=== PATIENT | female | born 1970 | race Caucasian/White ===

== ENCOUNTER 2020-02-17 15:50 | Emergency (ER) | payer SELFPAY ==
[~2020-02-17] VITALS: Ht 167.6 cm; Wt 65.9 kg
[2020-02-17 15:55] VITALS: BP 119/79
[2020-02-17] MEDS ORDERED: OXYC1TAB15 PO (18:52)
== END 2020-02-17 16:27 | disposition left against medical advice (07) ==
LOC: ER 15:50
DX: M54.5 Low back pain (principal); Z53.21 Procedure and treatment not carried out due to patient leaving prior to being seen by health care provider

== ENCOUNTER 2020-02-17 17:02 | Emergency (ER) | payer SELFPAY ==
[~2020-02-17] VITALS: Ht 167.6 cm; Wt 65.9 kg
[2020-02-17 17:45] VITALS: BP 153/118
[2020-02-17 18:21] LABS: BILIRUBIN,URINE SMALL (NEG); CLARITY,URINE CLEAR; COLOR,URINE AMBER; NITRITE,URINE NEGATIVE (NEG); PROTEIN,URINE NEGATIVE (NEG-TRACE); UROBILINOGEN,URINE 0.2 mg/dL (0.2 mg/dL)
[2020-02-17 18:27] LABS: BACTERIA,URINE 0 /HPF (0-FEW); RBC,URINE OCC /HPF (0-2); WBC,URINE OCC /HPF (0-4)
[2020-02-17] MEDS ORDERED: MORPHINE SULFATE 10 MG/ML VIAL. IM ONE (18:30)
[2020-02-17] MEDS ORDERED: ONDANSETRON ODT 4 MG TAB.RAPDIS. PO ONE (18:30)
[2020-02-17] MEDS ORDERED: OXYC1TAB15 PO (18:52)
--- NOTE | 2020-02-17 18:52 | ED.ADGEN ---
Past Medical History Past Medical History: Other Additional Past Medical Histor: cervical ca, chronic back pain, emphysema Past Surgical History: Appendectomy, Cholecystectomy, Other Additional Past Surgical Histo: right hip and leg surgery Smoking Status: Current Every Day Smoker Alcohol Use: None General Adult EDM: Chief Complaint: NAUSEA/VOMITING/DIARRHA HPI: HPI: Patient is a 49 year old female who presents emergency room stating that she is feeling nauseated because she has not had her medications in last 2 days. Patient states she takes 25 mg of clonidine twice a day and Percocet 5/325 mg tablets up to 4 times a day for chronic pain and anxiety. Patient denies any abdominal pain, nausea, vomiting, diarrhea, cough, shortness of breath, numbness, tingling, or weakness. She reports that she takes the pain medication for chronic back pain which has increased since she has been out of her pain medication. She denies any dysuria however she reports some increased urinary frequency and dark-colored urine. She currently rates her pain a 10 out of 10 on the pain scale, she denies any alleviating factors. Review of Systems: Review of Systems: Complete ROS is negative unless otherwise noted in HPI. Current Medications: Current Medications Medications (Trade) Dose Ordered Sig/Rj Start Time Stop Time Status Last Admin Dose Admin Morphine Sulfate (Morphine Sulfate) 5 mg 1X ONCE 02/17/20 18:30 02/17/20 18:31 DC 02/17/20 18:26 5 MG Ondansetron HCl (Zofran Odt) 4 mg 1X ONCE 02/17/20 18:30 02/17/20 18:31 DC 02/17/20 18:25 4 MG Allergies: Allergies: Allergies Coded Allergies Type Severity Reaction Last Updated Verified Penicillins Allergy Severe RASH,ITCHING 02/17/20 Yes Sulfa (Sulfonamide Antibiotics) Allergy Unknown RASH,ITCHING 02/17/20 Yes aspirin Allergy Unknown RASH,ITCHING 02/17/20 Yes Physical Exam: PE: See Above Constitutional: Well developed, well nourished, no acute distress, non-toxic appearance. [] HENT: Normocephalic, atraumatic, bilateral external ears normal, nose normal. [] Eyes: PERRLA, EOMI, conjunctiva normal, no discharge. [] Neck: Normal range of motion, no stridor. [] Cardiovascular:Heart rate regular rhythm Lungs & Thorax: Respirations even and unlabored, no retractions, no respiratory distress Skin: Warm, dry, no erythema, no rash. [] Extremities: No cyanosis, ROM intact, no edema. [] Neurologic: Alert and oriented X 3, no focal deficits noted. [] Psychologic: Affect normal, judgement normal, mood normal. [] Current Patient Data: Labs: Laboratory Tests Test 02/17/20 16:05 Urine Collection Type Unknown Urine Color Swapna Urine Clarity Clear Urine pH 5.0 (<5.0-8.0) Urine Specific Singer >=1.030 (1.000-1.030) Urine Protein Negative mg/dL (NEG-TRACE) Urine Glucose (UA) Negative mg/dL (NEG) Urine Ketones (Stick) Negative mg/dL (NEG) Urine Blood Negative (NEG) Urine Nitrite Negative (NEG) Urine Bilirubin Small (NEG) Urine Urobilinogen Dipstick 0.2 mg/dL (0.2 mg/dL) Urine Leukocyte Esterase Negative (NEG) Urine RBC Occ /HPF (0-2) Urine WBC Occ /HPF (0-4) Urine Squamous Epithelial Cells Few /LPF Urine Bacteria 0 /HPF (0-FEW) Urine Mucus Mod /LPF Vital Signs: Vital Signs Date Time Temp Pulse Resp B/P (MAP) Pulse Ox O2 Delivery O2 Flow Rate FiO2 02/17/20 17:45 98.4 102 12 153/118 (130) 94 Room Air 98.4 EKG: EKG: [] Heart Score: Risk Factors: Risk Factors: DM, Current or recent (<one month) smoker, HTN, HLP, family history of CAD, obesity. Risk Scores: Score 0 - 3: 2.5% MACE over next 6 weeks - Discharge Home Score 4 - 6: 20.3% MACE over next 6 weeks - Admit for Clinical Observation Score 7 - 10: 72.7% MACE over next 6 weeks - Early Invasive Strategies Radiology/Procedures: Radiology/Procedures: [] Course & Med Decision Making: Course & Med Decision Making Pertinent Labs and Imaging studies reviewed. (See chart for details) 49-year-old female presents emergency room with complaints of nausea due to being out of her pain and anxiety medication for 2 days and uncontrolled back pain. Patient was given 5 mg IM morphine 1 mg p.o. Zofran. She reported feeling better after these medications. Advised patient that I would not prescribe: Diazepam and Percocet as this is a lethal combination of medications. I advised patient that I could prescribe one or the other. Patient states that the Percocet would be more beneficial. I advised her that I will prescribe a 3-day supply of her Percocet she needs to follow-up with her primary care doctor for further management and treatment of her chronic back pain. Return to the ER if her symptoms worsen or she develops fever. Patient verbalized an understanding of home care, medications, follow-up, and return to ED instructions and was in agreement with the plan of care. [] I have reviewed the PA/LAB REP's note and Plan of Care. I was available for consultation as needed during the patient's visit in the emergency department. I agree with the clinical impression, plans and disposition. [place] Disclaimer: Laila Disclaimer: This electronic medical record was generated, in whole or in part, using a voice recognition dictation system. Departure Departure Impression: Primary Impression: Acute exacerbation of chronic low back pain Additional Impression: Medication refill Disposition: 01 DC HOME SELF CARE/HOMELESS Condition: STABLE Referrals: NO PCP (PCP) Patient Instructions: Chronic Back Pain Additional Instructions: Fill the prescription(s) and use as directed. Activity as tolerated. Follow up with your primary care doctor for further management of your chronic pain condition. Return to the ER if symptoms worsen or fever develops. Scripts Oxycodone/Apap 5-325 (PERCOCET 5-325 MG TABLET ) 1 Each Tablet 0.5-1 TAB PO QIDPRN PRN for PAIN MDD 4 Tablet(s) for 3 Days, #10 TAB 0 Refills Prov: JOIE KERR APRN 02/17/20 Problem Qualifiers JOIE KERR APRN Feb 17, 2020 18:52 OCTAVIO EDWARDS MD Feb 18, 2020 00:06
== END 2020-02-17 18:55 | disposition home or self-care (01) ==
LOC: ER 17:02
DX: G89.29 Other chronic pain (principal); M54.5 Low back pain; R11.0 Nausea; R50.9 Fever, unspecified; F17.200 Nicotine dependence, unspecified, uncomplicated; Z85.9 Personal history of malignant neoplasm, unspecified; Z90.49 Acquired absence of other specified parts of digestive tract; Z90.89 Acquired absence of other organs; Z98.890 Other specified postprocedural states; Z88.0 Allergy status to penicillin; Z88.2 Allergy status to sulfonamides; Z88.8 Allergy status to other drugs, medicaments and biological substances
CPT/HCPCS: 81001; 96372; 99283; J2270